=== PATIENT | male | born 1965 | race Native Hawaiian/Other Pacific Islander ===

== ENCOUNTER 2020-07-16 09:30 | Outpatient (CLI) | payer OTHER | END 2020-07-16 20:06 | disposition home or self-care (01) | LOC: RAD 09:30 | DX: I48.91 Unspecified atrial fibrillation (principal); E11.9 Type 2 diabetes mellitus without complications; F32.9 Major depressive disorder, single episode, unspecified; N28.9 Disorder of kidney and ureter, unspecified ==

== ENCOUNTER 2020-09-04 15:41 | Outpatient (CLI) | payer OTHER ==
[2020-09-04 16:27] LABS: POTASSIUM 4.4 mmol/L (3.6-5.2)
== END 2020-09-04 21:31 | disposition home or self-care (01) ==
LOC: LAB 15:41
PROVIDERS: ATTEND Internal Medicine
DX: M86.8X7 Other osteomyelitis, ankle and foot (principal)
CPT/HCPCS: 82565; 84132

== ENCOUNTER 2020-09-08 11:38 | Outpatient (CLI) | payer OTHER ==
[2020-09-08 12:03] LABS: POTASSIUM 4.8 mmol/L (3.6-5.2)
[2020-09-08 15:49] LABS: PLATELET COUNT 248 K/uL (142-355)
== END 2020-09-08 21:33 | disposition home or self-care (01) ==
LOC: LAB 11:38
PROVIDERS: ATTEND Family Medicine
DX: M86.9 Osteomyelitis, unspecified (principal)
CPT/HCPCS: 82565; 84132; 84520; 85027

== ENCOUNTER 2020-09-11 14:14 | Outpatient (CLI) | payer OTHER ==
[2020-09-11 14:33] LABS: POTASSIUM 4.6 mmol/L (3.6-5.2)
== END 2020-09-11 19:28 | disposition home or self-care (01) ==
LOC: LAB 14:14
PROVIDERS: ATTEND Internal Medicine
DX: M86.171 Other acute osteomyelitis, right ankle and foot (principal); Z79.2 Long term (current) use of antibiotics; E11.621 Type 2 diabetes mellitus with foot ulcer; L97.519 Non-pressure chronic ulcer of other part of right foot with unspecified severity
CPT/HCPCS: 82565; 84132

== ENCOUNTER 2020-09-15 11:13 | Outpatient (CLI) | payer OTHER ==
[2020-09-15 11:38] LABS: PLATELET COUNT 233 K/uL (142-355)
[2020-09-15 11:56] LABS: POTASSIUM 4.5 mmol/L (3.6-5.2)
== END 2020-09-15 19:38 | disposition home or self-care (01) ==
LOC: LAB 11:13
PROVIDERS: ATTEND Internal Medicine
DX: M86.171 Other acute osteomyelitis, right ankle and foot (principal); E11.621 Type 2 diabetes mellitus with foot ulcer; L97.519 Non-pressure chronic ulcer of other part of right foot with unspecified severity; Z79.2 Long term (current) use of antibiotics
CPT/HCPCS: 82565; 84132; 85027

== ENCOUNTER 2020-09-22 11:47 | Outpatient (CLI) | payer OTHER ==
[2020-09-22 12:04] LABS: PLATELET COUNT 213 K/uL (142-355)
[2020-09-22 12:33] LABS: POTASSIUM 4.2 mmol/L (3.6-5.2)
== END 2020-09-22 21:58 | disposition home or self-care (01) ==
LOC: LAB 11:47
PROVIDERS: ATTEND Internal Medicine
DX: M86.171 Other acute osteomyelitis, right ankle and foot (principal); Z79.2 Long term (current) use of antibiotics
CPT/HCPCS: 82565; 84132; 85027

== ENCOUNTER 2020-09-25 11:33 | Outpatient (CLI) | payer OTHER ==
[2020-09-25 12:41] LABS: POTASSIUM 4.9 mmol/L (3.6-5.2)
== END 2020-09-25 19:05 | disposition home or self-care (01) ==
LOC: LAB 11:33
PROVIDERS: ATTEND Internal Medicine
DX: M86.171 Other acute osteomyelitis, right ankle and foot (principal)
CPT/HCPCS: 82565; 84132

== ENCOUNTER 2020-09-29 10:24 | Outpatient (CLI) | payer OTHER ==
[2020-09-29 10:55] LABS: PLATELET COUNT 220 K/uL (142-355)
[2020-09-29 11:01] LABS: POTASSIUM 4.8 mmol/L (3.6-5.2)
== END 2020-09-29 21:08 | disposition home or self-care (01) ==
LOC: LAB 10:24
PROVIDERS: ATTEND Internal Medicine
DX: M86.171 Other acute osteomyelitis, right ankle and foot (principal); E11.621 Type 2 diabetes mellitus with foot ulcer; Z79.2 Long term (current) use of antibiotics
CPT/HCPCS: 82565; 84132; 85027

== ENCOUNTER 2020-10-03 10:57 | Outpatient (CLI) | payer OTHER ==
[2020-10-03 12:35] LABS: POTASSIUM 4.6 mmol/L (3.6-5.2)
== END 2020-10-03 19:02 | disposition home or self-care (01) ==
LOC: LAB 10:57
PROVIDERS: ATTEND Internal Medicine
DX: M86.171 Other acute osteomyelitis, right ankle and foot (principal); E11.621 Type 2 diabetes mellitus with foot ulcer; Z79.2 Long term (current) use of antibiotics
CPT/HCPCS: 36415; 82565; 84132

== ENCOUNTER 2020-10-06 10:35 | Outpatient (CLI) | payer OTHER ==
[2020-10-06 11:11] LABS: PLATELET COUNT 346 K/uL (142-355)
[2020-10-06 11:12] LABS: POTASSIUM 4.4 mmol/L (3.6-5.2)
== END 2020-10-06 20:32 | disposition home or self-care (01) ==
LOC: LAB 10:35
PROVIDERS: ATTEND Internal Medicine
DX: M86.171 Other acute osteomyelitis, right ankle and foot (principal); E11.621 Type 2 diabetes mellitus with foot ulcer; Z79.2 Long term (current) use of antibiotics
CPT/HCPCS: 82565; 84132; 85027

== ENCOUNTER 2020-10-10 12:27 | Outpatient (CLI) | payer OTHER ==
[2020-10-10 12:57] LABS: POTASSIUM 4.4 mmol/L (3.6-5.2)
== END 2020-10-10 23:59 | disposition home or self-care (01) ==
LOC: LAB 12:27
PROVIDERS: ATTEND Internal Medicine
DX: M86.171 Other acute osteomyelitis, right ankle and foot (principal); E11.621 Type 2 diabetes mellitus with foot ulcer; Z45.2 Encounter for adjustment and management of vascular access device; Z79.2 Long term (current) use of antibiotics
CPT/HCPCS: 82565; 84132

== ENCOUNTER 2020-10-13 11:49 | Outpatient (CLI) | payer OTHER ==
[2020-10-13 12:03] LABS: PLATELET COUNT 277 K/uL (142-355)
[2020-10-13 12:05] LABS: POTASSIUM 4.2 mmol/L (3.6-5.2)
== END 2020-10-13 19:23 | disposition home or self-care (01) ==
LOC: LAB 11:49
PROVIDERS: ATTEND Internal Medicine
DX: M86.171 Other acute osteomyelitis, right ankle and foot (principal); E11.621 Type 2 diabetes mellitus with foot ulcer; L97.519 Non-pressure chronic ulcer of other part of right foot with unspecified severity; Z45.2 Encounter for adjustment and management of vascular access device; Z79.2 Long term (current) use of antibiotics; Z79.4 Long term (current) use of insulin
CPT/HCPCS: 82565; 84132; 85027

== ENCOUNTER 2020-10-16 12:14 | Outpatient (CLI) | payer OTHER ==
[2020-10-16 12:48] LABS: POTASSIUM 4.2 mmol/L (3.6-5.2)
== END 2020-10-16 20:45 | disposition home or self-care (01) ==
LOC: LAB 12:14
PROVIDERS: ATTEND Internal Medicine
DX: M86.171 Other acute osteomyelitis, right ankle and foot (principal); E11.621 Type 2 diabetes mellitus with foot ulcer; L97.519 Non-pressure chronic ulcer of other part of right foot with unspecified severity; Z45.2 Encounter for adjustment and management of vascular access device; Z79.2 Long term (current) use of antibiotics; Z79.4 Long term (current) use of insulin
CPT/HCPCS: 82565; 84132

== ENCOUNTER 2020-10-20 11:06 | Outpatient (CLI) | payer OTHER ==
[2020-10-20 11:21] LABS: PLATELET COUNT 296 K/uL (142-355)
[2020-10-20 11:34] LABS: POTASSIUM 5.4 mmol/L (3.6-5.2)
== END 2020-10-20 19:03 | disposition home or self-care (01) ==
LOC: LAB 11:06
PROVIDERS: ATTEND Internal Medicine
DX: M86.171 Other acute osteomyelitis, right ankle and foot (principal); E11.621 Type 2 diabetes mellitus with foot ulcer; L97.519 Non-pressure chronic ulcer of other part of right foot with unspecified severity; Z45.2 Encounter for adjustment and management of vascular access device; Z79.2 Long term (current) use of antibiotics; Z79.4 Long term (current) use of insulin
CPT/HCPCS: 82565; 84132; 85027